=== PATIENT | female | born 1985 | race Caucasian/White ===

== ENCOUNTER 2019-10-14 00:03 | Emergency (ER) | payer SELFPAY ==
[~2019-10-14] VITALS: Ht 165.1 cm; Wt 94.5 kg
[2019-10-14 00:50] LABS: BASO # 0.1 x10^3/uL (0.0-0.2); BASO % 1 % (0-3); EOS # 0.1 x10^3/uL (0.0-0.7); EOS % 2 % (0-3); HEMATOCRIT 38.9 % (36.0-47.0); HEMOGLOBIN 13.8 g/dL (12.0-15.5); LYMPH # 2.4 x10^3/uL (1.0-4.8); LYMPH % 37 % (24-48); MEAN CORPUSCULAR HEMOGLOBIN 35 pg (25-35); MEAN CORPUSCULAR HGB CONC 35 g/dL (31-37); MEAN CORPUSCULAR VOLUME 100 fL (79-100); MONO # 0.4 x10^3/uL (0.0-1.1); MONO % 5 % (0-9); NEUT # 3.6 x10^3/uL (1.8-7.7); NEUT % 55 % (31-73); PLATELET COUNT 277 x10^3/uL (140-400); RED BLOOD COUNT 3.89 x10^6/uL (3.50-5.40); WHITE BLOOD COUNT 6.6 x10^3/uL (4.0-11.0)
[2019-10-14] MEDS ORDERED: ONDANSETRON PF 4 MG/2 ML VIAL. IVP ONE (01:00)
[2019-10-14] MEDS ORDERED: IV NORMAL SALINE 1000ML BAG 1,000 ML IV ONE (01:00)
[2019-10-14 01:08] VITALS: BP 141/92
[2019-10-14 01:10] LABS: CALCIUM 9.1 mg/dL (8.5-10.1); CREATININE 0.9 mg/dL (0.6-1.0); GFR 71.7; POTASSIUM 3.5 mmol/L (3.5-5.1)
[2019-10-14 01:17] LABS: ALBUMIN 3.7 g/dL (3.4-5.0); ALBUMIN/GLOBULIN RATIO 1.2 (1.0-1.7); TOTAL BILIRUBIN 0.3 mg/dL (0.2-1.0); TOTAL PROTEIN 6.7 g/dL (6.4-8.2)
[2019-10-14 01:18] LABS: BILIRUBIN,URINE NEGATIVE (NEG); CLARITY,URINE CLEAR; COLOR,URINE YELLOW; NITRITE,URINE NEGATIVE (NEG); PH,URINE 5.5 (<5.0-8.0); PROTEIN,URINE NEGATIVE (NEG-TRACE); UROBILINOGEN,URINE 0.2 mg/dL (0.2 mg/dL)
[2019-10-14 01:24] LABS: BACTERIA,URINE MODERATE /HPF (0-FEW); SQUAMOUS EPITHELIAL CELL,UR FEW /LPF
[2019-10-14 01:25] LABS: BARBITURATES NEG (NEG); BENZODIAZEPINES POS (NEG); CANNABINOIDS NEG (NEG); COCAINE NEG (NEG); METHADONE NEG (NEG); OPIATES NEG (NEG); PHENCYCLIDINE NEG (NEG)
[2019-10-14 01:28] LABS: AMPHETAMINE/METHAMPHETAMINE NEG (NEG)
[2019-10-14] MEDS ORDERED: FAMOTIDINE 20 MG/2 ML VIAL IVP ONE (01:30)
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
== END 2019-10-14 01:55 | disposition left against medical advice (07) ==
LOC: ER 00:03
DX: F10.229 Alcohol dependence with intoxication, unspecified (principal); R10.13 Epigastric pain; I10 Essential (primary) hypertension; Z90.710 Acquired absence of both cervix and uterus; Z88.8 Allergy status to other drugs, medicaments and biological substances; Z88.6 Allergy status to analgesic agent
CPT/HCPCS: 36415; 80053; 80307; 81001; 83690; 85025; 87086; 96374; 99284; G0480; J2405; J7030